=== PATIENT | male | born 1995 | race Two or more races ===

== ENCOUNTER 2019-02-13 11:49 | Emergency (ER) | payer SELFPAY ==
[~2019-02-13] VITALS: Ht 165.1 cm; Wt 85.0 kg
[2019-02-13 15:50] VITALS: BP 112/77
== END 2019-02-13 15:51 | disposition home or self-care (01) ==
LOC: ER 11:49
DX: M25.531 Pain in right wrist (principal)
CPT/HCPCS: 29125; 73110; 99283